=== PATIENT | female | born 1990 | race Two or more races ===

== ENCOUNTER 2023-03-11 00:01 | Emergency (ER) | payer OTHER ==
[~2023-03-11] VITALS: Ht 154.9 cm; Wt 80.0 kg
[2023-03-11 00:15] VITALS: PULSE 81
[2023-03-11] MEDS ORDERED: PNV1TABL17 PO (00:21)
[2023-03-11 00:52] VITALS: BP 120/85; RESP 20; TEMP 98.2
== END 2023-03-11 01:20 | disposition home or self-care (01) ==
LOC: EMS 00:04
DX: O26.853 Spotting complicating pregnancy, third trimester (principal); Z3A.40 40 weeks gestation of pregnancy
CPT/HCPCS: 99281; Z7502